=== PATIENT | male | born 1950 | race Caucasian/White ===

== ENCOUNTER 2022-12-30 11:58 | Emergency (ER) | payer MEDICARE ==
[~2022-12-30] VITALS: Ht 177.8 cm; Wt 90.7 kg
[2022-12-30 12:10] VITALS: BP 156/74
[2022-12-30 12:30] VITALS: BP 144/68
[2022-12-30] MEDS ORDERED: CRESTOR40 MG PO (13:30)
[2022-12-30] MEDS ORDERED: LISINOPRIL2.5 MG PO (13:30)
[2022-12-30 13:31] LABS: BASO% 0.8 % (0-3); EOS% 3.5 % (0-8); HEMOGLOBIN 12.3 g/dl (14.0-18.0); IMMATURE GRANULOCYTES 0.4 % (0.0-5.0); MEAN CORPUSCULAR HGB 25.8 pG CALC (26.0-32.0); NEUT# 3.23 thou/uL (1.82-7.42); NEUT% 67.3 % (42-76); RED BLOOD COUNT 4.77 mill/uL (4.70-6.10); RED CELL DISTRI WIDTH 14.9 % (11.5-15.5)
[2022-12-30] MEDS ORDERED: TRIGLIDE160 MG PO (13:31)
[2022-12-30] MEDS ORDERED: MS CONTIN15 M1 PO (13:32)
[2022-12-30] MEDS ORDERED: CILOSTAZOL50 MG PO (13:33)
[2022-12-30] MEDS ORDERED: OXYCODO-APAP1 TA2 PO (13:33)
[2022-12-30] MEDS ORDERED: NOVOLIN 70/30 SC (13:34)
[2022-12-30] MEDS ORDERED: PLAVIX75 MG PO (13:35)
[2022-12-30] MEDS ORDERED: NEURONTIN300 MG PO (13:35)
[2022-12-30] MEDS ORDERED: TOPROL XL25 M1 PO (13:36)
[2022-12-30] MEDS ORDERED: LEVOTHYROXIN75 MC1 PO (13:36)
[2022-12-30] MEDS ORDERED: ASPIRINCHW 81MG PO (13:37)
[2022-12-30] MEDS ORDERED: COQ10100 MG PO (13:38)
[2022-12-30 13:46] LABS: ALBUMIN 3.9 g/dL (3.2-5.0); ALKALINE PHOSPHATASE 47 u/l (38-126); ANION GAP 15 (6-22 (CALC)); BILIRUBIN, TOTAL 0.5 mg/dL (0.2-1.3); BUN 24 mg/dL (8-23); BUN/CREATININE RATIO 20 (12-20 (CALC)); CARBON DIOXIDE 23 mmol/l (22-30); CHLORIDE 106 mmol/l (95-108); CREATININE 1.2 mg/dL (0.7-1.3); GFR FOR AFR.AMER. > 60 ML/MIN (>=60 (CALC)); GFR OTHER RACES 59 ML/MIN (>=60 (CALC)); POTASSIUM 4.8 mmol/l (3.5-5.1); SGOT/AST 54 u/l (19-48); SODIUM 139 mmol/l (137-146); TOTAL PROTEIN 6.5 g/dL (6.3-8.2)
[2022-12-30 20:02] VITALS: BP 167/68
[2022-12-30 23:30] VITALS: BP 130/61
[2022-12-31] VITALS (7 sets, daily range): BP systolic 128–137; BP diastolic 58–73
== END 2022-12-31 03:24 ==
LOC: ED 11:58
PROVIDERS: Family Medicine
DX: E11.52 Type 2 diabetes mellitus with diabetic peripheral angiopathy with gangrene (principal); A48.0 Gas gangrene; E11.621 Type 2 diabetes mellitus with foot ulcer; L97.518 Non-pressure chronic ulcer of other part of right foot with other specified severity; L97.528 Non-pressure chronic ulcer of other part of left foot with other specified severity; Z95.1 Presence of aortocoronary bypass graft; Z95.0 Presence of cardiac pacemaker; Z79.4 Long term (current) use of insulin; Z89.412 Acquired absence of left great toe; Z89.411 Acquired absence of right great toe; Z89.422 Acquired absence of other left toe(s); Z89.421 Acquired absence of other right toe(s); L97.526 Non-pressure chronic ulcer of other part of left foot with bone involvement without evidence of necrosis; L97.513 Non-pressure chronic ulcer of other part of right foot with necrosis of muscle; L97.522 Non-pressure chronic ulcer of other part of left foot with fat layer exposed

== ENCOUNTER 2024-05-14 08:32 | Emergency (ER) | payer MEDICARE ==
[~2024-05-14] VITALS: Ht 177.8 cm; Wt 98.0 kg
[~2024-05-14 08:32] MED LIST: ASPIRINCHW 81MG PO; CILOSTAZOL50 MG PO; COQ10100 MG PO; CRESTOR40 MG PO; LASIX 20 MG TAB20 MG PO; LEVOTHYROXIN75 MC1 PO; LISINOPRIL2.5 MG PO; MS CONTIN15 M1 PO; NEURONTIN300 MG PO; NOVOLIN 70/30 SC; OXYCODO-APAP1 TA2 PO; PLAVIX75 MG PO; POTASSIUM CHLO20 ME1 PO; TOPROL XL25 M1 PO; TRIGLIDE160 MG PO
[2024-05-14 08:54] VITALS: BP 156/58
[2024-05-14 09:00] VITALS: BP 152/69
[2024-05-14 09:16] VITALS: BP 121/53
[2024-05-14] MEDS ORDERED: SODIUM CHLORIDE 0.9% 1,000 ML IV ONE (09:20)
[2024-05-14] MEDS ORDERED: MORPHINE SULFATE 4 MG/ML VIAL IV ONE (09:25)
[2024-05-14] MEDS ORDERED: ONDANSETRON HCl 4 MG/2 ML SDV IV ONE (09:30)
[2024-05-14 10:05] LABS: ALBUMIN 4.7 g/dL (3.2-5.0); TOTAL PROTEIN 7.8 g/dL (6.3-8.2)
[2024-05-14 10:06] LABS: BILIRUBIN, TOTAL 0.9 mg/dL (0.2-1.3); POTASSIUM 3.6 mmol/l (3.5-5.1)
[2024-05-14 10:07] LABS: BASO% 0.2 % (0-3); EOS% 0.2 % (0-8); HEMATOCRIT 42.5 % (39.0-50.0); HEMOGLOBIN 13.6 g/dl (14.0-18.0); IMMATURE GRANULOCYTES 0.1 % (0.0-5.0); LYMPH% 4.4 % (15-41); MEAN CELL VOLUME 87.4 fL CALC (80.0-100.0); MONO% 4.7 % (2-13); NEUT# 15.76 thou/uL (1.82-7.42); NEUT% 90.4 % (42-76); RED BLOOD COUNT 4.86 mill/uL (4.70-6.10); RED CELL DISTRI WIDTH 14.7 % (11.5-15.5)
[2024-05-14] MEDS ORDERED: Ciprofloxacin 200 mg Premix 200 ML IV ONE (11:55)
[2024-05-14] MEDS ORDERED: CIPROFLOXACN500 MG PO (12:43)
[2024-05-14] MEDS ORDERED: METRONIDAZOLE500 M2 PO (12:43)
[2024-05-14 12:59] VITALS: BP 145/67
[2024-05-14 13:15] VITALS: BP 143/72
[2024-05-14 13:30] VITALS: BP 147/67
== END 2024-05-14 14:07 | disposition home or self-care (01) ==
LOC: ED 08:32
PROVIDERS: Family Medicine
DX: K52.9 Noninfective gastroenteritis and colitis, unspecified (principal); E11.9 Type 2 diabetes mellitus without complications; I25.2 Old myocardial infarction; Z95.1 Presence of aortocoronary bypass graft; Z95.5 Presence of coronary angioplasty implant and graft; Z95.0 Presence of cardiac pacemaker; Z79.4 Long term (current) use of insulin
CPT/HCPCS: Q9967